=== PATIENT | female | born 1995 | race Caucasian/White ===

== ENCOUNTER 2016-03-22 13:36 | Emergency (ER) | payer OTHER | END 2016-03-22 17:26 | disposition home or self-care (01) | LOC: D.ER 13:36 | DX: J01.90 Acute sinusitis, unspecified (principal) ==

== ENCOUNTER 2016-05-05 18:45 | Emergency (ER) | payer OTHER ==
[2016-05-05 19:34] LABS: APPEARANCE SLT CLOUDY (CLEAR); BILIRUBIN NEGATIVE (NEGATIVE); COLOR YELLOW (YELLOW); GLUCOSE NEGATIVE (NEGATIVE); KETONE NEGATIVE (NEGATIVE); LEUKOCYTE ESTERASE 1+ (NEGATIVE); NITRITE NEGATIVE (NEGATIVE); PROTEIN NEGATIVE (NEGATIVE); SPECIFIC GRAVITY 1.025 (1.005-1.020); UROBILINOGEN NORMAL (NORMAL)
[2016-05-05 19:35] LABS: BACTERIA MODERATE /hpf (NONE SEEN); MUCUS <1+ /lpf (NONE SEEN); RED CELLS - URINE RARE /hpf (0-5)
[2016-05-05 19:47] LABS: BASOPHILS 0.1 % (0.0-2.0); EOSINOPHILS 1.1 % (0-7); HEMOGLOBIN 11.6 g/dL (12-16); IMMATURE GRANULOCYTES 0.3 % (0-5); LYMPHOCYTES 30.4 % (15-50); MCH 27.3 pg (26.0-34.0); MCHC 32.2 g/dL (31.0-37.0); MCV 84.7 fL (80.0-100.0); MEAN PLATELET VOLUME 11.2 fL (7.4-10.4); MONOCYTES 7.5 % (2-11); NEUTROPHILS 60.6 % (40-80); PLATELET COUNT 250 10x3/uL (130-400); RBC 4.25 10x6/uL (4.00-5.40); RDW 14.2 % (11.5-14.5); WBC 7.8 10x3/uL (4.8-10.8)
[2016-05-05 20:04] LABS: HCG SERUM POSITIVE (NEGATIVE)
== END 2016-05-05 22:00 | disposition home or self-care (01) ==
LOC: D.ER 18:45
PROVIDERS: Emergency Medicine
DX: O26.899 Other specified pregnancy related conditions, unspecified trimester (principal); R10.31 Right lower quadrant pain; T14.8 Other injury of unspecified body region; X50.0XXA Overexertion from strenuous movement or load, initial encounter; Y93.89 Activity, other specified; Y92.019 Unspecified place in single-family (private) house as the place of occurrence of the external cause

== ENCOUNTER 2016-07-17 09:10 | Emergency (ER) | payer OTHER | END 2016-07-17 10:07 | disposition home or self-care (01) | LOC: D.ER 09:10 | DX: O26.892 Other specified pregnancy related conditions, second trimester (principal); Z3A.15 15 weeks gestation of pregnancy; R55 Syncope and collapse ==